=== PATIENT | male | born 1980 | race Two or more races ===

== ENCOUNTER → 2024-09-22 08:54 | Outpatient (REF) | payer OTHER, SELFPAY | LOC: RCS 08:54 | PROVIDERS: ATTENDING PHYSICIAN Student in an Organized Health Care Education/Training Program | DX: R01.0 Benign and innocent cardiac murmurs (principal) | CPT/HCPCS: 93306 ==

== ENCOUNTER → 2024-10-02 08:15 | Outpatient (REF) | payer OTHER, SELFPAY | LOC: RAD 08:15 | PROVIDERS: ATTENDING PHYSICIAN Student in an Organized Health Care Education/Training Program | DX: Q78.0 Osteogenesis imperfecta (principal) | CPT/HCPCS: 77080 ==

== ENCOUNTER 2024-11-30 07:25 | Day surgery (SDC) | payer OTHER, SELFPAY | END 2024-11-30 10:21 | disposition home or self-care (01) | LOC: CATH 07:25 | PROVIDERS: ATTENDING PHYSICIAN Internal Medicine Cardiovascular Disease; FAMILY PHYSICIAN Student in an Organized Health Care Education/Training Program; OTHER PHYSICIAN Internal Medicine Cardiovascular Disease | DX: I35.1 Nonrheumatic aortic (valve) insufficiency (principal); R09.02 Hypoxemia; R00.0 Tachycardia, unspecified; E78.00 Pure hypercholesterolemia, unspecified | CPT/HCPCS: 93312; 93320; 93325 ==